=== PATIENT | female | born 1980 | race Caucasian/White ===

== ENCOUNTER 2016-05-22 02:52 | Inpatient (IN) | payer BC, MEDICAID, OTHER ==
[~2016-05-22] VITALS: Ht 162.6 cm; Wt 83.9 kg
[2016-05-22] MEDS ORDERED: TRAZ100T4 PO (02:58)
[2016-05-22 02:59] VITALS: BP 124/61; PULSE 86; RESP 16; TEMP 97.8; O2SAT 98
[2016-05-22] MEDS ORDERED: ZOLP12.5 PO (02:59)
--- NOTE | 2016-05-22 03:12 | PD ---
HPI Chief Complaint: Psychiatric Symptoms Time Seen by Provider: 02:57 Travel History International Travel<30 days: No Contact w/Intl Traveler<30days: No History of Present Illness HPI So 35-year-old woman who presents to the emergency department after reported overdose. Her teenage son called the police after he reports that the patient told him she took 4 sleeping pills and fell off the couch. She stumbled in the bathroom which is were police found her. Please reports the patient was unresponsive. On EMS arrival patient was confused and combative, but sedated. She has Ambien tablets, 12.5 mg extended release, that was ligated chewed on. Patient reports that she took sleeping pills because she wanted to go to sleep and that nobody cares about her. She is a history of suicidality in the son reported to the police the patient had had increased depression and had expressed suicidal thoughts in the past. Patient admits to alcohol use. No other complaints. History Past Medical History Medical History: Unable to Obtain Social History Tobacco Use: No (unknown) Allergies-Medications (Allergen,Severity, Reaction): Coded Allergies: No Known Allergies (Unverified , 05/22/16) Reported Meds & Prescriptions Reported Meds & Active Scripts Active Reported Zolpidem ER (Zolpidem Tartrate) 12.5 Mg Tab 12.5 Mg PO HS PRN Trazodone (Trazodone HCl) 100 Mg Tab 100 Mg PO HS Review of Systems ROS Limitations: Clinical Condition Physical Exam Narrative GENERAL: 35-year-old woman, awake, sluggishly responsive. No complaints. SKIN: Warm and dry. NECK: Trachea midline. No JVD. CARDIOVASCULAR: Regular rate and rhythm. No murmur appreciated. RESPIRATORY: No accessory muscle use. Clear to auscultation. Breath sounds equal bilaterally. GASTROINTESTINAL: Abdomen soft, non-tender, nondistended. Hepatic and splenic margins not palpable. MUSCULOSKELETAL: No obvious deformities. No edema. NEUROLOGICAL: Decreased alertness. Slurred speech. Slowly answer questions. Moves all extremities. No focal deficits. PSYCHIATRIC: Appropriate mood and affect; insight and judgment normal. Data Data Last Documented VS Vital Signs Date Time Temp Pulse Resp B/P Pulse Ox O2 Delivery O2 Flow Rate FiO2 05/22/16 02:59 97.8 86 16 124/61 98 Orders Electrocardiogram (05/22/16 02:59) Complete Blood Count With Diff (05/22/16 02:59) Comprehensive Metabolic Panel (05/22/16 02:59) Urinalysis - C+S If Indicated (05/22/16 02:59) Drug Screen, Random Urine (05/22/16 02:59) Alcohol (Ethanol) (05/22/16 02:59) Salicylates (Aspirin) (05/22/16 02:59) Tylenol (Acetaminophen) (05/22/16 02:59) Psych Screen (05/22/16 02:59) Labs Laboratory Tests Test 05/22/16 05/22/16 03:15 03:30 White Blood Count 5.7 TH/MM3 Red Blood Count 5.05 MIL/MM3 Hemoglobin 15.0 GM/DL Hematocrit 43.9 % Mean Corpuscular Volume 87.0 FL Mean Corpuscular Hemoglobin 29.6 PG Mean Corpuscular Hemoglobin 34.0 % Concent Red Cell Distribution Width 13.0 % Platelet Count 215 TH/MM3 Mean Platelet Volume 8.0 FL Neutrophils (%) (Auto) 54.3 % Lymphocytes (%) (Auto) 36.5 % Monocytes (%) (Auto) 6.0 % Eosinophils (%) (Auto) 2.3 % Basophils (%) (Auto) 0.9 % Neutrophils # (Auto) 3.1 TH/MM3 Lymphocytes # (Auto) 2.1 TH/MM3 Monocytes # (Auto) 0.3 TH/MM3 Eosinophils # (Auto) 0.1 TH/MM3 Basophils # (Auto) 0.0 TH/MM3 CBC Comment AUTO DIFF Sodium Level 139 MEQ/L Potassium Level 4.0 MEQ/L Chloride Level 105 MEQ/L Carbon Dioxide Level 25.6 MEQ/L Anion Gap 8 MEQ/L Blood Urea Nitrogen 10 MG/DL Creatinine 0.81 MG/DL Estimat Glomerular Filtration 80 ML/MIN Rate Random Glucose 84 MG/DL Calcium Level 8.7 MG/DL Total Bilirubin 0.3 MG/DL Aspartate Amino Transf 25 U/L (AST/SGOT) Alanine Aminotransferase 27 U/L (ALT/SGPT) Alkaline Phosphatase 43 U/L Total Protein 7.9 GM/DL Albumin 4.3 GM/DL Salicylates Level 3.0 MG/DL Acetaminophen Level LESS THAN 2.0 MCG/ML Ethyl Alcohol Level 208 MG/DL Urine Color COLORLESS Urine Turbidity CLEAR Urine pH 5.5 Urine Specific Chandler 1.003 Urine Protein NEG mg/dL Urine Glucose (UA) NEG mg/dL Urine Ketones NEG mg/dL Urine Occult Blood SMALL Urine Nitrite NEG Urine Bilirubin NEG Urine Urobilinogen LESS THAN 2.0 MG/DL Urine Leukocyte Esterase NEG Urine RBC LESS THAN 1 /hpf Urine WBC LESS THAN 1 /hpf Urine Squamous Epithelial <1 /hpf Cells Urine Mucus FEW /lpf Microscopic Urinalysis Comment CULT NOT INDICATED Urine Opiates Screen NEG Urine Barbiturates Screen NEG Urine Amphetamines Screen NEG Urine Benzodiazepines Screen NEG Urine Cocaine Screen NEG Urine Cannabinoids Screen NEG MDM Medical Decision Making Medical Screen Exam Complete: Yes Emergency Medical Condition: Yes Interpretation(s) My review of EKG: Normal sinus rhythm at a rate of 90, normal axis, normal intervals, no acute ischemia. LABS: CBC is unremarkable. CMP is unremarkable. UA is unremarkable. Urine drug screen negative Acetaminophen negative Salicylates 3 Alcohol 208 Differential Diagnosis Intoxication, overdose, depression, SI, other Narrative Course Medical decision making 35-year-old woman under a Santos crack for overdosing on sleeping pills. Reportedly took 4, 12.5 mg ambiens, extended release. Patient looks well. Sedated and probably intoxicated. We will check labs, psych to see. FINAL: Patient is medically clear for psychiatric evaluation. Mental health screening discussed with the patient. Psychiatric screen ordered. Diagnosis Primary Impression: Overdose Qualified Code: T50.902A - Overdose, intentional self-harm, initial encounter Additional Impression: Attempted suicide Chucho Neri MD May 22, 2016 03:12
[2016-05-22 03:43] LABS: AUTOMATED NEUTROPHIL # 3.1 TH/MM3 (1.8-7.7); BASOPHIL % 0.9 % (0.0-2.0); EOSINOPHIL # 0.1 TH/MM3 (0-0.4); EOSINOPHIL % 2.3 % (0.0-4.0); HEMATOCRIT 43.9 % (35.0-46.0); LYMPH % 36.5 % (9.0-44.0); LYMPHOCYTE # 2.1 TH/MM3 (1.0-4.8); MEAN CORPUSCULAR HEMOGLOBIN 29.6 PG (27.0-34.0); NEUT % 54.3 % (16.0-70.0); PLATELET COUNT 215 TH/MM3 (150-450); RED BLOOD COUNT 5.05 MIL/MM3 (4.00-5.30); WHITE BLOOD COUNT 5.7 TH/MM3 (4.0-11.0)
[2016-05-22 03:45] LABS: HEMO FLAGS AUTO DIFF
[2016-05-22 03:56] LABS: BLOOD, URINE SMALL (NEG); COMMENT (UR) CULT NOT INDICATED; CULTURE IF INDICATED CULT NOT INDICATED; GLUCOSE,URINE NEG (NEG); KETONE, URINE NEG (NEG); MUCUS URINE FEW /lpf (OCC); NITRITE,URINE NEG (NEG); PH, URINE 5.5 (5.0-8.5); SQUAMOUS EPITHELIAL CELL URINE <1 /hpf (0-5); URINE COLOR COLORLESS (YELLW/STRAW)
[2016-05-22 04:00] LABS: AMPHETAMINE, URINE NEG (NEG); BARBITURATES, URINE NEG (NEG); COCAINE, URINE NEG (NEG)
[2016-05-22 04:02] LABS: ALKALINE PHOSPHATASE 43 U/L (45-117); ALT (GPT) 27 U/L (10-53); ANION GAP 8 MEQ/L (5-15); AST (GOT) 25 U/L (15-37); BICARBONATE 25.6 MEQ/L (21.0-32.0); BLOOD UREA NITROGEN 10 MG/DL (7-18); CHLORIDE 105 MEQ/L (98-107); GLOMERULAR FILTRATION RATE 80 ML/MIN (>89); SODIUM (NA) 139 MEQ/L (136-145); TOTAL BILIRUBIN ADULT 0.3 MG/DL (0.2-1.0)
[2016-05-22 04:04] LABS: ACETAMINOPHEN LESS THAN 2.0 MCG/ML (10.0-30.0)
[2016-05-22 04:29] LABS: PLATELET ESTIMATE SMEAR NORMAL (NORMAL); PLATELET MORPHOLOGY NORMAL (NORMAL); SCAN/DIFF AUTO DIFF CONFIRMED
[2016-05-22 05:35] VITALS: RESP 16
[2016-05-22 06:00] VITALS: BP 157/73; PULSE 95; RESP 18; O2SAT 98
[2016-05-22 10:00] VITALS: BP 122/58; PULSE 84; RESP 16
[2016-05-22] MEDS ORDERED: LORazepam 2 MG TAB PO PRN (12:15)
[2016-05-22] MEDS ORDERED: BENZTROPINE MESYLATE 2 MG/2 ML VIAL IM PRN (12:15)
[2016-05-22] MEDS ORDERED: BENZTROPINE MESYLATE 1 MG TAB PO PRN (12:15)
[2016-05-22] MEDS ORDERED: FLUMAZENIL 0.5 MG/5 ML VIAL IV PUSH PRN (12:15)
[2016-05-22] MEDS ORDERED: ACETAMINOPHEN 325 MG TAB PO PRN (12:15)
[2016-05-22] MEDS ORDERED: ALUMINUM/MAGNESIUM/SIMETH 30 ML CUP PO PRN (12:15)
[2016-05-22] MEDS ORDERED: MAGNESIUM HYDROXIDE SUSP 30 ML CUP PO PRN (12:15)
[2016-05-22] MEDS ORDERED: diphenhydrAMINE HCL 50 MG CAP PO PRN (12:15)
[2016-05-22] MEDS ORDERED: LORazepam 1 MG TAB PO PRN (12:15)
[2016-05-22] MEDS ORDERED: LORazepam 2 MG/ML VIAL IV PUSH PRN ×4 (12:15)
--- NOTE | 2016-05-22 13:01 | EKG ---
Date Performed: 05/22/2016 Time Performed: 03:07:00 PTAGE: 35 years EKG: Sinus rhythm POSSIBLE RIGHT VENTRICULAR CONDUCTION DELAY BORDERLINE ECG NO PREVIOUS TRACING DOCTOR: Antonio Kramer Interpretating Date/Time 05/22/2016 12:58:51
[2016-05-22 14:15] VITALS: BP 148/81; PULSE 95; RESP 18; TEMP 98.6; O2SAT 96
[2016-05-22] MEDS ORDERED: ZOLPIDEM TARTRATE 10 MG TAB PO PRN (18:30)
--- NOTE | 2016-05-22 18:35 | HHI.HP ---
Provisional Diagnosis Admission Date May 22, 2016 at 12:07 Sumner I. 1. Major depressive disorder, recurrent moderate 2. Mixed anxiety disorder Sumner II. Deferred Sumner V. GAF is 40 presently Certification of Person's Competence To Provide Express and Informed Consent I have personally examined Noel Leavitt , a person being served at [facility] on, May 22, 2016 18:30. Express and informed consent means consent voluntarily given in writing, by a competent person, after sufficient explanation and disclosure of the subject matter involved to enable the person to make a knowing and willful decision without any element of force, fraud, deceit, duress, or other form of constraint or coercion. This person is 18 years of age or older, is not now known to be incompetent to consent to treatment with a guardian advocate, and does not have a health care surrogate or proxy currently making medical treatment decisions. I have found this person to be one of the following: [x] Competent to provide express and informed consent, as defined above, for voluntary admission to this facility and is competent to provide express and informed consent for treatment. He/she has the consistent capacity to make well reasoned, willful, and knowing decisions concerning his or her medical or mental health treatment. The person fully and consistently understands the purpose of the admission for examination/placement and is fully capable of personally exercising all rights assured under [place] Incompetent to provide express and informed consent to voluntary admission, and this is incompetent to provide express and informed consent to treatment. The person must be transferred to involuntary status and a petition for a guardian advocate filed with the Circuit Court. [] Refusing to provide express and informed consent to voluntary admission but is competent to provide express and informed consent for treatment. The person must be discharged or transferred to involuntary status. Form shall be completed within 24 hours of a person's arrival at the receiving facility and filed in the clinical record of each person: 1. Admitted on a voluntary basis 2. Permitted to provide express and informed consent to his/her own treatment 3. Allowed to transfer from involuntary to voluntary status 4. Prior to permitting a person to consent to his or her own treatment after having been previously found incompetent to consent to treatment. History of Present Illness Capacity: Has Capacity HPI Miss Leavitt is a 35-year-old female with a reported history of anxiety and depression who presents under a Santos act alleging small sedative hypnotic overdose. Patient was evaluated and medically cleared in the emergency room. Reviewing the electronic medical record, I see this is patient' s first visit to [facility]. Patient seen and examined with nursing staff. Chart reviewed. Case discussed with nurse. On my examination today the patient reports that she was drinking last night and was upset" about everything" including her difficulties with her and her finances. She says that she took a small handful of Ambien because "I felt abandoned. I'm tired of people thinking I don't exist. People only think of me when they need something from me." Patient vaguely remembers making the ingestion but does not feel that it was necessarily suicidal in nature. She denies suicidal ideation at this time. Patient admits that over the last month or so she's been feeling increasingly depressed with increased sleep and appetite and decreased concentration. Motivation is poor. She endorses hopeless and worthless feelings. She does endorse anxious rumination and social anxiety, and the former of these disrupts her sleep. No clear history of hypomania or kylah although patient does describe weeklong periods when she feels somewhat hyper. There is no family history of bipolar disorder. The patient denies ever having experienced audiovisual hallucinations, and I can elicit no delusional beliefs. The remainder of the psychiatric ROS is negative. Past psychiatric history: Patient reports a history of anxiety and depression. She gets Lexapro and Ambien from her primary care doctor. She has been on Prozac, Zoloft, Wellbutrin, Abilify in the past. Wellbutrin and Abilify were particularly unhelpful. She did have decent trials of Prozac and Zoloft she says and these were not particularly efficacious. She denies a history of psychiatric admissions. She denies a history of suicide attempts or nonsuicidal self-injurious behavior. Family history: Patient reports a family history of depression and anxiety in her mother. Her mother also attempted suicide. Chemical dependency history: Patient reports that she is a binge drinker. She says that when she does drink she can drink a 12 pack of beer. She endorses a history of blackouts but denies a history of DTs or seizures. Her longest sober time is about a month. She has never participated in any chemical dependency rehabilitation she says. She denies any other substance use. Social history: The patient denies a history of physical, verbal or sexual abuse. She is originally from [place] [address] of [place]. She has been for 20 years and says that the marriage is somewhat aly. She denies any abuse concerns. She has 2 teenaged children ages 16 and 18. 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 Denies any or legal history. She does keep a gun at home. Denies any roman catholic or spiritual beliefs. Review of Systems Other No reported headache, vision or hearing changes, chest pain, shortness of breath , bowel or bladder issues. No other somatic complaints. Past Psych History Psychological trauma history See above Substance Abuse History Drugs/Alcohol past 12 months See above Past Family Social History Coded Allergies: No Known Allergies (Unverified , 05/22/16) Past Medical History See electronic medical record Reported Medications Zolpidem ER 12.5 Mg Tab12.5 Mg PO HS PRN (INSOMNIA) Ref 0 05/22/16 Trazodone 100 Mg Cay127 Mg PO HS #30 TAB Ref 0 05/22/16 Current Medications Medications (Trade) Dose Ordered Sig/Desiree Route Start Time Stop Time Status Last Admin (Benadryl) 50 mg HS PRN PO 05/22/16 12:15 (Tylenol) 650 mg Q4H PRN PO 05/22/16 12:15 (Milk Of Magnesia Liq) 30 ml DAILY PRN PO 05/22/16 12:15 (Mag-Al Plus Susp Liq) 30 ml Q6H PRN PO 05/22/16 12:15 (Habitrol 21 Mg Patch.24 Hr) 1 patch DAILY T-DERMAL 05/23/16 09:00 (Atarax) 50 mg Q6H PRN PO 05/22/16 12:15 (Cogentin) 1 mg Q12H PRN PO 05/22/16 12:15 (Cogentin Inj) 1 mg Q12H PRN IM 05/22/16 12:15 (Romazicon Inj) 0.2 mg Q1M PRN IV PUSH 05/22/16 12:15 (Ativan) 1 mg Q4H PRN PO 05/22/16 12:15 (Ativan Inj) 1 mg Q4H PRN IV PUSH 05/22/16 12:15 (Ativan) 2 mg Q2H PRN PO 05/22/16 12:15 (Ativan Inj) 2 mg Q2H PRN IV PUSH 05/22/16 12:15 (Ativan Inj) 2 mg Q1H PRN IV PUSH 05/22/16 12:15 (Ativan Inj) 2 mg Q15M PRN IV PUSH 05/22/16 12:15 Miscellaneous Information 1 DAILY T-DERMAL 05/23/16 09:00 (Vitamin B1) 100 mg DAILY PO 05/23/16 09:00 (Folate) 1 mg DAILY PO 05/23/16 09:00 Patient reports outpatient medications are Lexapro 20 mg daily and Ambien CR 12.5 mg at bedtime. Family History See above Social History See above Patient's Strengths (min. 2) Intelligent. Verbally fluent. Physical Exam Physical examination completed by ED provider. On my examination today, patient is in no acute physical distress. No motoric abnormalities noted. No hand tremor, no diaphoresis, no mydriasis, no other signs of alcohol withdrawal. Labs and vital signs reviewed. Vital Signs Vital Signs Date Time Temp Pulse Resp B/P Pulse Ox O2 Delivery O2 Flow Rate FiO2 05/22/16 14:15 98.6 95 18 148/81 96 Lab Results Item Value Date Time White Blood Count 5.7 TH/MM3 05/22/16 0315 Hemoglobin 15.0 GM/DL 05/22/16 0315 Platelet Count 215 TH/MM3 05/22/16 0315 Sodium Level 139 MEQ/L 05/22/16 0315 Potassium Level 4.0 MEQ/L 05/22/16 0315 Chloride Level 105 MEQ/L 05/22/16 0315 Anion Gap 8 MEQ/L 05/22/16 0315 Blood Urea Nitrogen 10 MG/DL 05/22/16 0315 Carbon Dioxide Level 25.6 MEQ/L 05/22/16 0315 Aspartate Amino Transf (AST/SGOT) 25 U/L 05/22/16 0315 Alanine Aminotransferase (ALT/SGPT) 27 U/L 05/22/16 0315 Alkaline Phosphatase 43 U/L L 05/22/16 0315 Beta HCG, Qualitative LESS THAN 1 MIU/ML 05/22/16 0315 Ethyl Alcohol Level 208 MG/DL H 05/22/16 0315 Toxicology negative urinalysis bland. Mental Status Examination Patient is in hospital gown. She is well groomed. She is awake and alert and oriented 3. No abnormal motor movements noted. No signs of delirium. Speech is within normal limits for rate, tone and volume. Language and fund of knowledge seem average. Mood is depressed and affect is blunted. Thought process linear. No loosening of associations. No evident delusions. Denies audiovisual hallucinations. Denies current suicidal or homicidal ideation. Insight and judgment are fair. Assessment & Plan Problem List: (1) Major depressive disorder ICD Code: F32.9 (2) Anxiety disorder ICD Code: F41.9 Assessment & Plan This is a 35-year-old female with psychiatric history as detailed above who presents under a Santos act following a small sedative hypnotic overdose. On my examination today, patient reports depressive symptoms including worsening mood, increased sleep and appetite and worsening concentration and motivation. She also describes a fair degree of comorbid mixed anxiety, and she highlights this as her primary problem. She is already being treated with Lexapro and we have an extensive discussion regarding psychopharmacologic strategies for the management of patient's anxiety and depression including switching to a different antidepressant class or augmenting her Lexapro with a variety of agents including an antipsychotic, lithium, Lamictal, or buspirone. After discussion of the risks and benefits of reasonable strategies, the patient and I elected to augment her lithium with buspirone. Patient requires psychiatric hospitalization for observation and stabilization. Admit inpatient. Voluntary status. Check a TSH in the morning. Continue Lexapro 20 mg daily and Ambien as needed for sleep. We do not stock the controlled release and so I will order immediate release Ambien at bedtime. Augment Lexapro with BuSpar 10 mg 3 times daily. Atarax as needed for anxiety. Cogentin as needed for EPS. Benadryl as needed for sleep. CIWA with Ativan as needed for any withdrawal. Thiamine and folate. Seizure and fall precautions. Vitals every shift. Counselor to see. Disposition planning. Estimated length of stay: 3-5 days. Discharge Planning Pending outcome of observation Request HC Surrog/Guard Advoc?: No Problem Qualifiers (1) Major depressive disorder: Qualified Code: F33.1 - Moderate episode of recurrent major depressive disorder (2) Anxiety disorder: Qualified Code: F41.3 - Other mixed anxiety disorders Ajit Frederick MDb 11, 2017 18:35
[2016-05-22 18:46] VITALS: BP 140/78; PULSE 79; RESP 18; TEMP 97.9; O2SAT 98
[2016-05-22] MEDS: busPIRone HCL 10 MG TAB PO SCH (21:03)
[2016-05-22] MEDS: hydrOXYzine HCL 50 MG TAB PO PRN (21:28)
[2016-05-23 04:29] VITALS: BP 135/73; PULSE 67; RESP 18; TEMP 98.3; O2SAT 97
[2016-05-23 07:38] LABS: ANION GAP 9 MEQ/L (5-15); BICARBONATE 25.1 MEQ/L (21.0-32.0); BLOOD UREA NITROGEN 16 MG/DL (7-18); CHLORIDE 105 MEQ/L (98-107); GLOMERULAR FILTRATION RATE 75 ML/MIN (>89); POTASSIUM 3.4 MEQ/L (3.5-5.1); SODIUM (NA) 139 MEQ/L (136-145)
[2016-05-23 07:48] LABS: HDL CHOLESTEROL 59.3 MG/DL (40.0-60.0); LDL CHOLESTEROL 48 MG/DL (0-99)
[2016-05-23] MEDS: FOLIC ACID 1 MG TAB PO SCH (08:25)
[2016-05-23] MEDS: busPIRone HCL 10 MG TAB PO SCH ×3 (08:25→20:40)
[2016-05-23] MEDS: THIAMINE HCL 100 MG TAB PO SCH (08:25)
[2016-05-23] MEDS: ESCITALOPRAM OXALATE 20 MG TAB PO SCH (08:25)
[2016-05-23] MEDS: NICOTINE 21 MG/24 HR PATCH T-DERMAL SCH (08:31)
[2016-05-23] MEDS: REMOVE OLD PATCH T-DERMAL SCH (08:57)
[2016-05-23 09:37] LABS: HEMOGLOBIN A1a 0.9 %; HEMOGLOBIN A1b 1.5 %; HEMOGLOBIN LA1C 1.8 %; HEMOGLOBIN P3 3.3 %
--- NOTE | 2016-05-23 12:18 | HHI.PYPN ---
Subjective Remarks Patient was seen and case discussed with nursing. Patient is pleasant and cooperative with exam. Alert and oriented 4, no auditory visual hallucinations , no tremor nausea or vomiting, vitals within normal limits. Patient is guarded concerning the the incident that got her here. She admits to poorly controlled depression. Minimizes her alcohol use. Today, she denies suicidal ideations intent or plan. Compliant with medications Objective Alert: Yes [place]: Person, Place, Date, Situation Mood: Depressed Affect: Blunted Memory Intact: Immediate Hallucinations: Other Delusions: No Delusion Type: Other Suicidal: Ideation (denies) Homicidal: Ideation (denies) Insight/Judgement Poor Labs Test 05/23/16 06:25 Sodium Level 139 MEQ/L Potassium Level 3.4 MEQ/L Chloride Level 105 MEQ/L Carbon Dioxide Level 25.1 MEQ/L Anion Gap 9 MEQ/L Blood Urea Nitrogen 16 MG/DL Creatinine 0.86 MG/DL Estimat Glomerular Filtration 75 ML/MIN Rate Random Glucose 81 MG/DL Hemoglobin A1c 5.0 % Calcium Level 8.5 MG/DL Triglycerides Level 164 MG/DL Cholesterol Level 140 MG/DL LDL Cholesterol 48 MG/DL HDL Cholesterol 59.3 MG/DL Cholesterol/HDL Ratio 2.36 RATIO Thyroid Stimulating Hormone 1.230 uIU/ML 3rd Gen Vitals/IOs Vital Signs Date Time Temp Pulse Resp B/P Pulse Ox O2 Delivery O2 Flow Rate FiO2 05/23/16 04:29 98.3 67 18 135/73 97 Assessment & Plan Problem List: (1) Major depressive disorder ICD Code: F32.9 (2) Anxiety disorder ICD Code: F41.9 Assessment & Plan Continue current treatment plan Justification for Cont. Inpt. Patient will decompensate in a less restrictive setting Request HC Surrog/Guard Advoc?: No Problem Qualifiers (1) Major depressive disorder: Qualified Code: F33.1 - Moderate episode of recurrent major depressive disorder (2) Anxiety disorder: Qualified Code: F41.3 - Other mixed anxiety disorders Ming Vines DO May 23, 2016 12:18
[2016-05-23] MEDS ORDERED: POTASSIUM CHLORIDE 10 MEQ CAP PO ONE (12:30)
[2016-05-23 19:04] VITALS: BP 151/89; PULSE 71; RESP 18; TEMP 98.7; O2SAT 97
[2016-05-24 05:16] VITALS: BP 112/64; PULSE 64; RESP 18; TEMP 97.6; O2SAT 98
[2016-05-24] MEDS: THIAMINE HCL 100 MG TAB PO SCH (08:55)
[2016-05-24] MEDS: FOLIC ACID 1 MG TAB PO SCH (08:55)
[2016-05-24] MEDS: ESCITALOPRAM OXALATE 20 MG TAB PO SCH (08:55)
[2016-05-24] MEDS: busPIRone HCL 10 MG TAB PO SCH ×3 (08:55→20:36)
[2016-05-24] MEDS: REMOVE OLD PATCH T-DERMAL SCH (08:56)
[2016-05-24] MEDS: NICOTINE 21 MG/24 HR PATCH T-DERMAL SCH (08:57)
--- NOTE | 2016-05-24 09:12 | HHI.PYPN ---
Subjective Remarks Patient seen and examined with nurse. Chart reviewed. Case discussed with nursing staff reports patient has been pleasant and cooperative. On my examination today, the patient says that she met with her over the weekend and notes that he is trying to control the situation and come up with a "game plan." Patient contemplating having him come in for a family meeting with counselor to try to iron out some of the issues in their marriage. She does say that she would like to pursue individual counseling on an outpatient basis. She realizes she needs to cut down her drinking and is thinking of attending 12-step meetings on discharge. No withdrawal symptoms at this time. Denies side effects from medications besides some mild lightheadedness. I suggest the depression support group as an adjunct to her outpatient care, and she is receptive to this. Denies suicidal or homicidal ideation. Denies audiovisual hallucinations. Pleased with medications as currently ordered. Review of Systems Other Except as above, no reported somatic complaints Objective Alert: Yes [place]: Person, Place, Date Mood: Anxious (lessening), Depressed (improving) Affect: Other (fairly full and reactive) Memory Intact: Comment (intact on clinical exam) Hallucinations: Other (no AVH) Delusions: No Delusion Type: Other (no delusions) Suicidal: Ideation (denies suicidal ideation) Homicidal: Ideation (denies homicidal ideation) Insight/Judgement Fair Remarks TP linear. No abnormal motor movements noted. Speech within normal limits for rate, tone and volume. No signs of withdrawal noted. Labs Labs reviewed. I note marginally low potassium was repleted. Vitals/IOs Vital Signs Date Time Temp Pulse Resp B/P Pulse Ox O2 Delivery O2 Flow Rate FiO2 05/24/16 05:16 97.6 64 18 112/64 98 Assessment & Plan Problem List: (1) Major depressive disorder ICD Code: F32.9 (2) Anxiety disorder ICD Code: F41.9 Assessment & Plan Continue current psychotropics as ordered, Lexapro and BuSpar. Continue other medications and care as ordered. Case discussed with counselor. Justification for Cont. Inpt. Monitoring for safety Discharge Planning Monitor overnight. Possible dispo tomorrow. Request HC Surrog/Guard Advoc?: No Problem Qualifiers (1) Major depressive disorder: Qualified Code: F33.1 - Moderate episode of recurrent major depressive disorder (2) Anxiety disorder: Qualified Code: F41.3 - Other mixed anxiety disorders Ajit Frederick MD May 24, 2016 09:12
[2016-05-24 18:46] VITALS: BP 130/79; PULSE 75; RESP 18; TEMP 98; O2SAT 97
[2016-05-24] MEDS: hydrOXYzine HCL 50 MG TAB PO PRN (20:36)
[2016-05-25 05:37] VITALS: BP 124/63; PULSE 60; RESP 16; TEMP 97.8
[2016-05-25] MEDS: ESCITALOPRAM OXALATE 20 MG TAB PO SCH (08:46)
[2016-05-25] MEDS: busPIRone HCL 10 MG TAB PO SCH ×2 (08:46→13:00)
[2016-05-25] MEDS: THIAMINE HCL 100 MG TAB PO SCH (08:46)
[2016-05-25] MEDS: FOLIC ACID 1 MG TAB PO SCH (08:46)
[2016-05-25] MEDS: REMOVE OLD PATCH T-DERMAL SCH (08:47)
[2016-05-25] MEDS: NICOTINE 21 MG/24 HR PATCH T-DERMAL SCH (08:47)
[2016-05-25] MEDS ORDERED: ESCI20TA PO (13:52)
[2016-05-25] MEDS ORDERED: VITA100T2 PO (13:52)
[2016-05-25] MEDS ORDERED: FOLI1TAB4 PO (13:52)
[2016-05-25] MEDS ORDERED: BUSP10TA PO (13:52)
--- NOTE | 2016-05-25 13:52 | HHI.DS ---
Psychiatry Discharge Summary Inpatient Psychiatric care?: Yes Advance Directive: No Reason Not Provided: NONE EXIST Mental Health AdvanceDirective: No Health Care Proxy: No Admission Admission Date May 22, 2016 at 12:07 Admission Diagnosis: (1) Major depressive disorder ICD Code: F32.9 (2) Anxiety disorder ICD Code: F41.9 Brief History Miss Leavitt is a 35-year-old female with a reported history of anxiety and depression who presents under a Santos act alleging small sedative hypnotic overdose. Patient was evaluated and medically cleared in the emergency room. Reviewing the electronic medical record, I see this is patient' s first visit to [facility]. Patient seen and examined with nursing staff. Chart reviewed. Case discussed with nurse. On my examination today the patient reports that she was drinking last night and was upset" about everything" including her difficulties with her and her finances. She says that she took a small handful of Ambien because "I felt abandoned. I'm tired of people thinking I don't exist. People only think of me when they need something from me." Patient vaguely remembers making the ingestion but does not feel that it was necessarily suicidal in nature. She denies suicidal ideation at this time. Patient admits that over the last month or so she's been feeling increasingly depressed with increased sleep and appetite and decreased concentration. Motivation is poor. She endorses hopeless and worthless feelings. She does endorse anxious rumination and social anxiety, and the former of these disrupts her sleep. No clear history of hypomania or kylah although patient does describe weeklong periods when she feels somewhat hyper. There is no family history of bipolar disorder. The patient denies ever having experienced audiovisual hallucinations, and I can elicit no delusional beliefs. The remainder of the psychiatric ROS is negative. Past psychiatric history: Patient reports a history of anxiety and depression. She gets Lexapro and Ambien from her primary care doctor. She has been on Prozac, Zoloft, Wellbutrin, Abilify in the past. Wellbutrin and Abilify were particularly unhelpful. She did have decent trials of Prozac and Zoloft she says and these were not particularly efficacious. She denies a history of psychiatric admissions. She denies a history of suicide attempts or nonsuicidal self-injurious behavior. Family history: Patient reports a family history of depression and anxiety in her mother. Her mother also attempted suicide. Chemical dependency history: Patient reports that she is a binge drinker. She says that when she does drink she can drink a 12 pack of beer. She endorses a history of blackouts but denies a history of DTs or seizures. Her longest sober time is about a month. She has never participated in any chemical dependency rehabilitation she says. She denies any other substance use. Social history: The patient denies a history of physical, verbal or sexual abuse. She is originally from [place] by way of [place]. She has been for 20 years and says that the marriage is somewhat aly. She denies any abuse concerns. She has 2 teenaged children ages 16 and 18. 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 Denies any or legal history. She does keep a gun at home. Denies any faith or spiritual beliefs. Tobacco Use In Past 30 Days: 4 or Less Cigarettes/Day Alcohol Use: 2-3 Times Per Week Hospital Course Patient was admitted to a locked, inpatient psychiatric unit. Appropriate precautions were in place throughout patient's hospital stay. Patient was seen and examined daily on the unit by psychiatry and also visited by counselor. Medications were adjusted. Patient tolerated medications well without lasting side effects. Patient had improvement in her presenting psychiatric symptomatology. There was no evidence of any suicidality or homicidality on the inpatient unit. Patient remained in good behavioral control and was medication compliant. Patient participated well in unit activities. Patient has been sleeping and eating well. On the day of discharge: Patient seen and examined with counselor. Chart reviewed. Case discussed with counselor and nursing staff in treatment team. On my examination today, the patient reports that she feels much improved and ready for discharge today. She requests discharge from the inpatient psychiatric unit. She feels her mood is stable and generally euthymic. She denies suicidal or homicidal ideation. No depressive or hypomanic/manic symptoms. She denies any audiovisual hallucinations and I can elicit no delusional beliefs. She is future oriented. She is tolerating psychotropics well without side effects. She has no withdrawal symptoms. Her CIWA scores have been minimal. She has no somatic complaints generally. Weighing the acute, chronic, and protective factors based on the available evidence, I horse show judge to a reasonable degree of medical certainty that the patient is at low imminent risk of harm to self or others from a mental illness and her level of function is adequate for outpatient care. Patient will be discharged today in stable condition with psychiatric follow-up as arranged by counselor. Patient is also to follow-up with primary care. I counseled the patient to pursue chemical dependency evaluation and if warranted treatment on an outpatient basis. I counseled the patient regarding warning signs for need to return to the psychiatric emergency room as part of the general safety plan. Results Blood Pressure 124 / 63 Vital Signs Date Time Temp Pulse Resp B/P Pulse Ox O2 Delivery O2 Flow Rate FiO2 05/25/16 05:37 97.8 60 16 124/63 05/24/16 18:46 97 Laboratory Tests Test 05/23/16 06:25 Potassium Level 3.4 MEQ/L (3.5-5.1) Estimat Glomerular Filtration 75 ML/MIN (>89) Rate Triglycerides Level 164 MG/DL (42-150) Laboratory Results Test 05/23/16 06:25 Hemoglobin A1c 5.0 % (4.3-6.0) Triglycerides Level 164 MG/DL (42-150) Cholesterol Level 140 MG/DL (120-200) LDL Cholesterol 48 MG/DL (0-99) HDL Cholesterol 59.3 MG/DL (40.0-60.0) Summary of Procedures None done Imaging None done Pending results at discharge: No Medications # of Antipsychotic meds at D/C: 0 Approp Antipsych med options 1 - Minimum of three failed multiple trials of monotherapy. 2 - Documented plan to taper to monotherapy due to previous use of multiple meds OR cross-taper in progress at D/C. 3 - Documentation of augmentation of Clozapine. 4 - Justification other than those listed in allowable values 1-3, document here : Discharge Discharge Date: May 25, 2016 Discharge Diagnosis: (1) Major depressive disorder in partial remission Diagnosis: Principal ICD Code: F32.4 (2) Anxiety disorder Diagnosis: Secondary (improved versus admission) ICD Code: F41.9 (3) Alcohol consumption binge drinking Diagnosis: Secondary (counseled to abstain and pursue chemical dependency evaluation and treatment) ICD Code: F10.10 GAF is 60 on day of discharge Mental Status Exam at Disch Patient is casually dressed. She is well groomed. She is awake and alert and oriented 3. No evidence of delirium. No abnormal motor movements noted. No signs of withdrawal noted. Speech is within normal limits for rate, tone and volume. Language and fund of knowledge are at least average. Mood is improved versus admission and affect is full and reactive. Anxiety level is lessened. Thought process linear. No loosening of associations. No evident delusions. Denies audiovisual hallucinations. Denies suicidal ideation, intent or plan. Denies homicidal ideation, intent or plan. Insight and judgment are fair. Pt Condition on Discharge: Stable Discharge Disposition: Discharge Home Discharge Instructions Diet Instructions: As Tolerated, No Restrictions Activities you can perform: Weight Bearing as [place] Scheduled Appointment: [facility] Appointment Date: May 28, 2016 Appointment Time: 7:30am New Medications: Buspirone (Buspirone) 10 Mg Tab 10 MG PO DAILY@,,21 Mental Health Days 15 Ref 1 TAB Escitalopram (Escitalopram) 20 Mg Tab 20 MG PO DAILY Order to update med rec only. Pt has adequate supply at home. Mental Health Days 0 TAB Folic Acid (Folate) 1 Mg Tab 1 MG PO DAILY Nutritional Supplement Days 30 Ref 0 TAB Thiamine (Vitamin B-1) 100 Mg Tab 100 MG PO DAILY Nutritional Supplement Days 30 Ref 0 TAB Continued Medications: Zolpidem ER (Zolpidem ER) 12.5 Mg Tab 12.5 MG PO HS PRN INSOMNIA Ref 0 TAB Discontinued Medications: Trazodone (Trazodone) 100 Mg Tab 100 MG PO HS Control Depression #30 Ref 0 TAB Discharge Time <= 30 minutes Discharge/Advance Care Plan Health Problems: (1) Major depressive disorder (2) Anxiety disorder Goals to promote your health * To prevent worsening of your condition and complications * To maintain your health at the optimal level Directions to meet your goals Take your medications as prescribed Follow your dietary instruction Follow activity as directed Keep your appointments as scheduled Take your immunizations and boosters as scheduled If your symptoms worsen call your PCP, if no PCP go to Urgent Care Center or Emergency Room For 24/ questions related to your inpatient stay or results of tests pending at discharge, please contact Dr. Ajit Frederick at Smoking is Dangerous to Your Health. Avoid second hand smoking Problem Qualifiers (1) Major depressive disorder: Qualified Code: F33.1 - Moderate episode of recurrent major depressive disorder (2) Anxiety disorder: Qualified Code: F41.3 - Other mixed anxiety disorders (3) Major depressive disorder in partial remission: Qualified Code: F33.41 - Recurrent major depressive disorder, in partial remission Ajit Frederick MD May 25, 2016 13:52
== END 2016-05-25 15:15 | disposition home or self-care (01) | DRG 918 ==
LOC: NEPE 02:52 → NEDA 12:07 → H260 13:15
PROVIDERS: ADMIT Psychiatry & Neurology Psychiatry; ATTEND Psychiatry & Neurology Psychiatry
DX: T42.6X4A Poisoning by other antiepileptic and sedative-hypnotic drugs, undetermined, initial encounter (principal); F32.4 Major depressive disorder, single episode, in partial remission; F41.9 Anxiety disorder, unspecified; Y92.012 Bathroom of single-family (private) house as the place of occurrence of the external cause; W08.XXXA Fall from other furniture, initial encounter; Z72.0 Tobacco use
CPT/HCPCS: 80048; 80053; 80061; 80307; 80320; 80329; 81001; 83036; 84443; 84703; 85025; 93005; G0480

== ENCOUNTER 2017-02-20 04:08 | Emergency (ER) | payer BC, MEDICAID ==
[~2017-02-20] VITALS: Ht 162.6 cm; Wt 85.0 kg
[~2017-02-20 04:08] MED LIST: BUSP10TA PO; ESCI20TA PO; FOLI1TAB4 PO; VITA100T2 PO; ZOLP12.5 PO
[2017-02-20 04:12] VITALS: BP 175/99; PULSE 105; RESP 20; TEMP 96.7; O2SAT 100
[2017-02-20] MEDS ORDERED: ADDE20 PO (04:25)
--- NOTE | 2017-02-20 04:46 | PD ---
HPI Chief Complaint: Suicide Ideation/Attempt Time Seen by Provider: 04:30 Travel History International Travel<30 days: No Contact w/Intl Traveler<30days: No Traveled to known affect area: No History of Present Illness HPI Patient comes in requesting psychiatric evaluation. Patient states that she is "crazy". Patient states that her that are around her tells her that she is crazy and was brought into the emergency department for psychiatric evaluation. Patient reports history of suicide attempt by overdose in the past. Patient denies any suicidal plans currently. Denies any homicidal ideations. Denies any medical concerns at this time. Denies any chest pain, shortness breath, fevers, nausea, abdominal pain, headache, or . Denies anything making this better or worse. Patient does admit to using cocaine recently and believes this is same as Adderall. PFSH Past Medical History Arthritis: No Asthma: No Autoimmune Disease: No Anxiety: Yes Depression: Yes Heart Rhythm Problems: No Cancer: No (per pt.) Cardiovascular Problems: No (per pt.) High Cholesterol: No Chest Pain: No Congestive Heart Failure: No COPD: No Cerebrovascular Accident: No Diabetes: No (per pt.) Diminished Hearing: No Endocrine: No GERD: No Genitourinary: No Headaches: No (per pt.) Hiatal Hernia: No Hypertension: Yes (pt states high lately) Immune Disorder: No Kidney Stones: No Musculoskeletal: No Neurologic: No Psychiatric: Yes (pt was diagnosised with depression from her primary doctor) Reproductive: No Respiratory: No Migraines: No Renal Failure: No Seizures: No (per pt.) Sleep Apnea: No Thyroid Disease: No Ulcer: No Tetanus Vaccination: < 5 Years Influenza Vaccination: No ?: Unknown LMP: 02/06/2017 : 3 Para: 2 Miscarriage: 1 Past Surgical History Abdominal Surgery: No AICD: No Arteriovenous Shunt: No Cardiac Surgery: No Ear Surgery: No Endocrine Surgery: No Eye Surgery: No Genitourinary Surgery: No Gynecologic Surgery: No Insulin Pump: No Joint Replacement: No Oral Surgery: No Pacemaker: No Thoracic Surgery: No Social History Alcohol Use: Yes (daily) Tobacco Use: Yes Substance Use: Yes (cocaine and marijaunia) Allergies-Medications (Allergen,Severity, Reaction): Coded Allergies: No Known Allergies (Unverified , 05/22/16) Reported Meds & Prescriptions Reported Meds & Active Scripts Active Buspirone (Buspirone HCl) 10 Mg Tab 10 Mg PO DAILY@09,13,21 15 Days Escitalopram (Escitalopram Oxalate) 20 Mg Tab 20 Mg PO DAILY 0 Days Order to update med rec only. Pt has adequate supply at home. Reported Adderall (Amphetamine-Dextroamphetamine) 20 Mg Tab 20 Mg PO DAILY Avoid late evening doses. Space doses at least 4 to 6 hours if more than once/day dosing. Review of Systems ROS Limitations: Intoxication Except as stated in HPI: all other systems reviewed are Neg Physical Exam Exam Limitations: Intoxication Narrative GENERAL: Well-developed, overly nourished, in no acute distress, and non-ill appearing. SKIN: Focused skin assessment warm and dry. HEAD: Atraumatic. Normocephalic. EYES: Pupils equal and round. EOMI. No scleral icterus. No injection or drainage. ENT: No nasal bleeding or discharge. Mucous membranes pink and moist. NECK: Trachea midline. Supple. No nuclear rigidity. CARDIOVASCULAR: Regular rate and rhythm. No murmur appreciated. RESPIRATORY: No accessory muscle use. No respiratory distress. Clear to auscultation. Breath sounds equal bilaterally. MUSCULOSKELETAL: No obvious deformities. No clubbing. No cyanosis. No edema. Full range of motion. NEUROLOGICAL: Awake and alert. No obvious cranial nerve deficits. Motor grossly within normal limits. Normal speech. PSYCHIATRIC: Appropriate mood and affect; insight and judgment normal. Data Data Last Documented VS Vital Signs Date Time Temp Pulse Resp B/P (MAP) Pulse Ox O2 Delivery O2 Flow Rate FiO2 02/20/17 04:12 96.7 105 20 175/99 (124) 100 Room Air Orders Orders Complete Blood Count With Diff (02/20/17 04:30) Comprehensive Metabolic Panel (02/20/17 04:30) Ed Urine Pregnancytest Poc (02/20/17 04:30) Psych Screen (02/20/17 04:30) Drug Screen, Random Urine (02/20/17 04:30) Alcohol (Ethanol) (02/20/17 04:30) Salicylates (Aspirin) (02/20/17 04:30) Tylenol (Acetaminophen) (02/20/17 04:30) Labs Laboratory Tests Test 02/20/17 04:35 White Blood Count 8.1 TH/MM3 Red Blood Count 5.11 MIL/MM3 Hemoglobin 16.1 GM/DL Hematocrit 46.5 % Mean Corpuscular Volume 91.1 FL Mean Corpuscular Hemoglobin 31.4 PG Mean Corpuscular Hemoglobin Concent 34.5 % Red Cell Distribution Width 13.8 % Platelet Count 258 TH/MM3 Mean Platelet Volume 8.2 FL Neutrophils (%) (Auto) 64.2 % Lymphocytes (%) (Auto) 27.3 % Monocytes (%) (Auto) 5.5 % Eosinophils (%) (Auto) 2.4 % Basophils (%) (Auto) 0.6 % Neutrophils # (Auto) 5.2 TH/MM3 Lymphocytes # (Auto) 2.2 TH/MM3 Monocytes # (Auto) 0.4 TH/MM3 Eosinophils # (Auto) 0.2 TH/MM3 Basophils # (Auto) 0.0 TH/MM3 CBC Comment DIFF FINAL Differential Comment Blood Urea Nitrogen 6 MG/DL Creatinine 0.82 MG/DL Random Glucose 102 MG/DL Total Protein 7.9 GM/DL Albumin 3.8 GM/DL Calcium Level 8.3 MG/DL Alkaline Phosphatase 76 U/L Aspartate Amino Transf (AST/SGOT) 59 U/L Alanine Aminotransferase (ALT/SGPT) 104 U/L Total Bilirubin 0.1 MG/DL Sodium Level 145 MEQ/L Potassium Level 4.0 MEQ/L Chloride Level 108 MEQ/L Carbon Dioxide Level 29.1 MEQ/L Anion Gap 8 MEQ/L Estimat Glomerular Filtration Rate 78 ML/MIN Salicylates Level 3.6 MG/DL Urine Opiates Screen NEG Acetaminophen Level LESS THAN 2.0 MCG/ML Urine Barbiturates Screen NEG Urine Amphetamines Screen NEG Urine Benzodiazepines Screen NEG Urine Cocaine Screen NEG Urine Cannabinoids Screen NEG Ethyl Alcohol Level 212 MG/DL [facility] Medical Decision Making Medical Screen Exam Complete: Yes Emergency Medical Condition: Yes Differential Diagnosis Depression, substance abuse, alcohol intoxication, acute psychosis, metabolic disturbance, , other Narrative Course Patient was seen and examined. Labs were obtained and reviewed. Patient medically cleared for further treatment and evaluation by psych. Final disposition per psych. Diagnosis Primary Impression: Alcohol intoxication Qualified Codes: F10.920 - Alcohol use, unspecified with intoxication, uncomplicated Additional Impression: Medical clearance for psychiatric admission Condition: Stable Paul Hu Feb 20, 2017 04:45
[2017-02-20 04:56] LABS: AUTOMATED NEUTROPHIL # 5.2 TH/MM3 (1.8-7.7); BASOPHIL % 0.6 % (0.0-2.0); EOSINOPHIL # 0.2 TH/MM3 (0-0.4); EOSINOPHIL % 2.4 % (0.0-4.0); HEMATOCRIT 46.5 % (35.0-46.0); HEMO FLAGS DIFF FINAL; LYMPH % 27.3 % (9.0-44.0); LYMPHOCYTE # 2.2 TH/MM3 (1.0-4.8); MEAN CELL VOLUME 91.1 FL (80.0-100.0); MEAN CORPUSCULAR HEMOGLOBIN 31.4 PG (27.0-34.0); MEAN CORPUSCULAR HGB CONC 34.5 % (32.0-36.0); MONO % 5.5 % (0.0-8.0); NEUT % 64.2 % (16.0-70.0); PLATELET COUNT 258 TH/MM3 (150-450); RED BLOOD COUNT 5.11 MIL/MM3 (4.00-5.30); RED CELL DISTRIBUTION WIDTH 13.8 % (11.6-17.2); WHITE BLOOD COUNT 8.1 TH/MM3 (4.0-11.0)
[2017-02-20 05:26] LABS: ALKALINE PHOSPHATASE 76 U/L (45-117); TOTAL BILIRUBIN ADULT 0.1 MG/DL (0.2-1.0)
[2017-02-20 05:55] LABS: ACETAMINOPHEN LESS THAN 2.0 MCG/ML (10.0-30.0); ALCOHOL 212 MG/DL (0-5); ALT (GPT) 104 U/L (10-53); ANION GAP 8 MEQ/L (5-15); AST (GOT) 59 U/L (15-37); BICARBONATE 29.1 MEQ/L (21.0-32.0); BLOOD UREA NITROGEN 6 MG/DL (7-18); CHLORIDE 108 MEQ/L (98-107); GLOMERULAR FILTRATION RATE 78 ML/MIN (>89); SODIUM (NA) 145 MEQ/L (136-145)
--- NOTE | 2017-02-20 08:26 | PD ---
Physical Exam Date Seen by Provider: Feb 20, 2017 Time Seen by Provider: 08:21 Narrative 36-year-old female as a voluntary psychiatric patient in the emergency department. The patient was evaluated by previous provider. A psych screen was ordered. The patient is now sober and able to perform the psych screening however doesn't want it. Patient states she is under a lot of stress going through divorce. She states she has been suicidal in the past but is not suicidal or homicidal at this time. Patient would like to go home and relax on this Tuesday. Data Data Last Documented VS Vital Signs Date Time Temp Pulse Resp B/P (MAP) Pulse Ox O2 Delivery O2 Flow Rate FiO2 02/20/17 04:12 96.7 105 20 175/99 (124) 100 Room Air Orders Orders Complete Blood Count With Diff (02/20/17 04:30) Comprehensive Metabolic Panel (02/20/17 04:30) Ed Urine Pregnancytest Poc (02/20/17 04:30) Psych Screen (02/20/17 04:30) Drug Screen, Random Urine (02/20/17 04:30) Alcohol (Ethanol) (02/20/17 04:30) Salicylates (Aspirin) (02/20/17 04:30) Tylenol (Acetaminophen) (02/20/17 04:30) Labs Laboratory Tests Test 02/20/17 04:35 White Blood Count 8.1 TH/MM3 Red Blood Count 5.11 MIL/MM3 Hemoglobin 16.1 GM/DL Hematocrit 46.5 % Mean Corpuscular Volume 91.1 FL Mean Corpuscular Hemoglobin 31.4 PG Mean Corpuscular Hemoglobin Concent 34.5 % Red Cell Distribution Width 13.8 % Platelet Count 258 TH/MM3 Mean Platelet Volume 8.2 FL Neutrophils (%) (Auto) 64.2 % Lymphocytes (%) (Auto) 27.3 % Monocytes (%) (Auto) 5.5 % Eosinophils (%) (Auto) 2.4 % Basophils (%) (Auto) 0.6 % Neutrophils # (Auto) 5.2 TH/MM3 Lymphocytes # (Auto) 2.2 TH/MM3 Monocytes # (Auto) 0.4 TH/MM3 Eosinophils # (Auto) 0.2 TH/MM3 Basophils # (Auto) 0.0 TH/MM3 CBC Comment DIFF FINAL Differential Comment Blood Urea Nitrogen 6 MG/DL Creatinine 0.82 MG/DL Random Glucose 102 MG/DL Total Protein 7.9 GM/DL Albumin 3.8 GM/DL Calcium Level 8.3 MG/DL Alkaline Phosphatase 76 U/L Aspartate Amino Transf (AST/SGOT) 59 U/L Alanine Aminotransferase (ALT/SGPT) 104 U/L Total Bilirubin 0.1 MG/DL Sodium Level 145 MEQ/L Potassium Level 4.0 MEQ/L Chloride Level 108 MEQ/L Carbon Dioxide Level 29.1 MEQ/L Anion Gap 8 MEQ/L Estimat Glomerular Filtration Rate 78 ML/MIN Salicylates Level 3.6 MG/DL Urine Opiates Screen NEG Acetaminophen Level LESS THAN 2.0 MCG/ML Urine Barbiturates Screen NEG Urine Amphetamines Screen NEG Urine Benzodiazepines Screen NEG Urine Cocaine Screen NEG Urine Cannabinoids Screen NEG Ethyl Alcohol Level 212 MG/DL MDM Supervised Visit with MARY ELLEN: Yes Differential Diagnosis Depression versus suicidal ideation versus anxiety versus adjustment disorder versus mood disorder versus bipolar disorder versus schizophrenia versus paranoid disorder versus psychosis versus substance abuse versus alcohol abuse versus alcohol induced psychosis versus homicidality addition versus cutting versus personality disorder Narrative Course 36-year-old female is denying homicidal or suicidal ideation. She would like to be discharged home. She has a ride home. Patient will be discharged home with instructions to return to the emergency department if she starts feeling suicidal again. Patient instructed to avoid alcohol intoxication especially during this stressful time in her life. Diagnosis Primary Impression: Alcohol intoxication Qualified Codes: F10.920 - Alcohol use, unspecified with intoxication, uncomplicated Additional Impression: Medical clearance for psychiatric admission Referrals: [facility] Patient Instructions: Alcohol Intoxication (DC), General Instructions Additional Instruction: Please return to emergency department if your symptoms return or worsen. Follow up with your primary care provider. Avoid alcohol intoxication during this stressful time in your life. Disposition: 01 DISCHARGE HOME Condition: Stable Pallavi Davies [facility] Feb 20, 2017 08:26
== END 2017-02-20 09:04 | disposition home or self-care (01) ==
LOC: NEPD 04:08
DX: Z02.89 Encounter for other administrative examinations (principal); F10.920 Alcohol use, unspecified with intoxication, uncomplicated; I10 Essential (primary) hypertension; Z72.0 Tobacco use; Z79.899 Other long term (current) drug therapy; Z86.59 Personal history of other mental and behavioral disorders
CPT/HCPCS: 80053; 80307; 84703; 85025; 99283